=== PATIENT | male | born 1940 | race Caucasian/White ===

== ENCOUNTER 2023-05-07 12:16 | Emergency (ER) | payer OTHER ==
[~2023-05-07] VITALS: Ht 157.5 cm; Wt 70.3 kg
[2023-05-07 12:16] VITALS: BP_SYST 145; PULSE 105; RESP 16; TEMP 98.7; O2SAT 95
[2023-05-07 18:30] VITALS: O2SAT 97
[2023-05-07 21:06] VITALS: BP_SYST 129; PULSE 78; RESP 20; TEMP 98
== END 2023-05-07 20:20 | disposition home or self-care (01) ==
LOC: SED 12:16
DX: S40.012A Contusion of left shoulder, initial encounter (principal); S40.011A Contusion of right shoulder, initial encounter; E11.9 Type 2 diabetes mellitus without complications; I10 Essential (primary) hypertension; Z79.899 Other long term (current) drug therapy; W01.0XXA Fall on same level from slipping, tripping and stumbling without subsequent striking against object, initial encounter; Y93.89 Activity, other specified; Y92.89 Other specified places as the place of occurrence of the external cause; Y99.8 Other external cause status
CPT/HCPCS: 73030; 99285

== ENCOUNTER 2023-06-22 18:17 | Emergency (ER) | payer OTHER ==
[~2023-06-22] VITALS: Ht 172.7 cm; Wt 60.3 kg
[2023-06-22 18:17] VITALS: BP_SYST 148; PULSE 112; RESP 18; TEMP 97.9; O2SAT 97
[2023-06-22] MEDS ORDERED: iohexoL 350 mgI/mL, 100 ML INFUS..BTL IV ONE (18:39)
[2023-06-22 18:55] LABS: BASOPHILS % (AUTO) 0.4 % (0.0-2.0); EOSINOPHILS # (AUTO) 0.1 K/uL (0.0-0.4); EOSINOPHILS % (AUTO) 1.6 % (0.0-4.0); HEMATOCRIT 32.2 % (36-54); HEMOGLOBIN 10.4 g/dL (14.0-18.0); LYMPHOCYTES # (AUTO) 1.4 K/uL (1.0-5.5); LYMPHOCYTES % (AUTO) 24.7 % (20.5-51.5); MEAN CORPUSCULAR HEMOGLOBIN 25 pg (27-31); MEAN CORPUSCULAR HGB CONC 32 % (32-36); MEAN CORPUSCULAR VOLUME 79 fL (79.0-98.0); MONOCYTES # (AUTO) 0.4 K/uL (0.0-1.0); MONOCYTES % (AUTO) 6.8 % (1.7-9.3); NEUTROPHILS # (AUTO) 3.9 K/uL (1.8-7.7); NEUTROPHILS % (AUTO) 66.5 % (40.0-70.0); PLATELET COUNT (AUTO) 285 K/uL (130-430); RED BLOOD CELL COUNT(AUTO) 4.07 MIL/uL (4.2-6.2); RED CELL DISTRIBUTION WIDTH 14.9 % (9.0-15.0); WHITE BLOOD COUNT (AUTO) 5.8 K/uL (4.8-10.8)
[2023-06-22 19:12] LABS: ANION GAP 3 (5-15); CALCIUM 9.4 mg/dL (8.4-11.0); CARBON DIOXIDE 34 mmol/L (23-29); CHLORIDE 101 mmol/L (98-107); CREATININE 0.93 mg/dL (0.55-1.30); GLUCOSE 167 mg/dL (74-106); POTASSIUM 3.4 mmol/L (3.5-5.1); SODIUM SERUM 138 mmol/L (136-145); UREA NITROGEN, BLOOD 21 mg/dL (8-21)
[2023-06-22] MEDS ORDERED: TENECTEPLASE 50 MG VIAL IV ONE (19:15)
[2023-06-22] MEDS ORDERED: NORMAL SALINE 5 ML DISP.SYRIN IVF ONE (19:15)
[2023-06-22 19:19] LABS: ALANINE AMINOTRANSFERASE 12 U/L (12-78); ALBUMIN 2.7 g/dL (3.4-4.8); ASPARTATE AMINOTRANSFERASE 14 U/L (10-37); BILIRUBIN,DIRECT 0.1 mg/dL (0.0-0.3); TOTAL BILIRUBIN 0.4 mg/dL (0.0-1.0)
[2023-06-22 19:20] LABS: INR 1.1 (0.80-1.20); PROTHROMBIN TIME 11.1 SECS (9.5-12.5)
[2023-06-22] MEDS ORDERED: ASPI-1393 PO (20:43)
[2023-06-22] MEDS ORDERED: GABA800T PO (20:43)
[2023-06-22] MEDS ORDERED: CILO100T3 PO (20:43)
[2023-06-22] MEDS ORDERED: OXYB5TAB16 PO (20:43)
[2023-06-22] MEDS ORDERED: DULO20CA PO (20:43)
[2023-06-22] MEDS ORDERED: METF500S9 PO (20:43)
[2023-06-22] MEDS ORDERED: BENA10TA73 PO (20:43)
[2023-06-22] MEDS ORDERED: IRON-6 PO (20:43)
[2023-06-22] MEDS ORDERED: LIP20 PO (20:43)
[2023-06-22] MEDS ORDERED: AMLO2.5T2 PO (20:43)
[2023-06-22] MEDS ORDERED: FER300L PO (20:43)
[2023-06-22 20:50] VITALS: BP_SYST 179; PULSE 97; RESP 15; TEMP 97.7; O2SAT 96
== END 2023-06-22 20:55 | disposition short-term general hospital (02) ==
LOC: SED 18:17
DX: I63.9 Cerebral infarction, unspecified (principal); R41.82 Altered mental status, unspecified; E11.9 Type 2 diabetes mellitus without complications; I10 Essential (primary) hypertension; Z79.899 Other long term (current) drug therapy
CPT/HCPCS: 99291; 70496; 96374; 71045; 80076; 80048; 85025; 85610; 86886; 86900; 86901; 84484; 36415; 93005; 70498; 70450; 76376; J3101; Q9967